=== PATIENT | female | born 1975 | race Two or more races ===

== ENCOUNTER 2024-02-14 13:37 | Emergency (ER) | payer OTHER ==
[~2024-02-14] VITALS: Ht 172.7 cm; Wt 68.0 kg
[2024-02-14] MEDS ORDERED: TAMOXIFEN CITRA10 MG PO (13:59)
== END 2024-02-14 17:56 | disposition home or self-care (01) ==
LOC: ER 13:39
DX: M25.562 Pain in left knee (principal)

== ENCOUNTER 2024-07-02 05:12 | Day surgery (SDC) | payer OTHER ==
[2024-06-30 11:44] VITALS: BP 100/68
[~2024-07-02] VITALS: Ht 172.7 cm; Wt 68.5 kg
[~2024-07-02 05:12] MED LIST: MULTI VITAMIN200 MCG PO; TAMOXIFEN CITRA10 MG PO
[2024-07-02] MEDS ORDERED: GENTAMICIN SULFATE 40 MG/ML VIAL ONE (07:02)
[2024-07-02] MEDS ORDERED: CLINDAMYCIN PHOSPHATE 150 MG/ML (900mg) ONE (07:02)
[2024-07-02] MEDS ORDERED: BUPIVACAINE HCL/MPF 0.5% 30ML VIAL ONE (07:03)
[2024-07-02] MEDS ORDERED: POVIDONE-IODINE SCRUB 118 ML BOTT TOP ONE (07:03)
[2024-07-02] MEDS ORDERED: CEFAZOLIN SODIUM 1,000 MG VIAL ONE (07:03)
[2024-07-02] MEDS ORDERED: POVIDONE-IODINE 118 ML BOTT TOP ONE (07:03)
[2024-07-02] MEDS ORDERED: TRANEXAMIC ACID 100MG/1ML (1000MG) AMPUL IV ONE (08:18)
[2024-07-02] MEDS ORDERED: NITROGLYCERIN 1 INCH OINT..GM. TD ONE (09:18)
[2024-07-02] MEDS ORDERED: MORPHINE SULFATE 4 MG/ML VIAL IV ONE ×2 (11:30→12:00)
== END 2024-07-02 13:50 | disposition home or self-care (01) ==
LOC: CIR.AMB 05:12
PROVIDERS: ATTEND Surgery
DX: D05.11 Intraductal carcinoma in situ of right breast (principal); D05.12 Intraductal carcinoma in situ of left breast; N60.81 Other benign mammary dysplasias of right breast; N60.82 Other benign mammary dysplasias of left breast; N60.01 Solitary cyst of right breast; Z90.13 Acquired absence of bilateral breasts and nipples; Z80.3 Family history of malignant neoplasm of breast